=== PATIENT | female | born 1950 | race Two or more races ===

== ENCOUNTER 2019-03-31 11:42 | Emergency (ER) | payer OTHER | END 2019-03-31 15:56 | disposition home or self-care (01) | LOC: JER 11:42 ==

== ENCOUNTER 2022-04-01 19:15 | Emergency (ER) | payer OTHER ==
[2022-04-01 19:26] VITALS: BMI 56.7
[2022-04-01] MEDS ORDERED: ACETAMINOPHEN 325 MG TABLET (FP) PO ONE (23:07)
[2022-04-01] MEDS ORDERED: ACETAMINOPHEN 325 MG TABLET (FP) ONE (23:17)
[2022-04-02 01:17] VITALS: BP 150/80; PULSE 65
== END 2022-04-02 01:17 | disposition home or self-care (01) ==
LOC: JER 19:15
DX: S09.93XA Unspecified injury of face, initial encounter (principal); W21.02XA Struck by soccer ball, initial encounter
CPT/HCPCS: 70450-TC; 70486-TC; 99284-25